=== PATIENT | female | born 1985 | race Caucasian/White ===

== ENCOUNTER 2022-11-17 12:35 | Outpatient (RCR) | payer MEDICARE, MEDICAID, SELFPAY | END 2022-12-18 12:54 | disposition home or self-care (01) | LOC: HO.WCC 12:35 | PROVIDERS: Visit Provider Physician Assistant | DX: Z09 Encounter for follow-up examination after completed treatment for conditions other than malignant neoplasm (principal); G80.2 Spastic hemiplegic cerebral palsy; I10 Essential (primary) hypertension; Z87.2 Personal history of diseases of the skin and subcutaneous tissue | CPT/HCPCS: 99212; 99213 ==